=== PATIENT | female | born 1945 | race American Indian/Alaskan Native ===

== ENCOUNTER 2017-05-18 10:18 | Emergency (ER) | payer MEDICARE ==
[2017-05-18 10:42] VITALS: BP 165/72
[2017-05-18 11:36] LABS: Calcium 8.8 mg/dL (8.4-10.2); Chloride 94.8 mmol/L (98-107); Potassium 3.4 mmol/L (3.6-5.0)
[2017-05-18 11:44] LABS: Basophils % (Auto) 0.7 % (0.0-1.8); Eosinophils % (Auto) 2.2 % (0.0-4.3); Hematocrit 35.7 % (30.3-42.9); Hemoglobin 11.5 gm/dl (10.1-14.3); Mean Corpuscular HGB Conc 32 % (30-34); Mean Corpuscular Hemoglobin 28 pg (28-32); Mean Corpuscular Volume 87 fl (79-97)
[2017-05-18 11:49] LABS: INR 1.23 (0.87-1.13)
[2017-05-18 11:50] LABS: Partial Thromboplastin Time 41.6 Sec. (24.2-36.6); Platelet Count 99 K/mm3 (140-440); Red Cell Distribution Width 22.9 % (13.2-15.2)
--- NOTE | 2017-05-18 13:47 | Emergency Department Report ---
ED General Adult HPI - General Chief complaint: Extremity Injury, Upper Stated complaint: UNCONTROLLABLE BLEEDING Time Seen by Provider: 05/18/17 10:48 Source: EMS Mode of arrival: Stretcher Limitations: No Limitations - History of Present Illness Initial comments: Patient was sent via EMS from dialysis after bleeding from her shunt. She states that she believes she needed dialysis this morning. She doesn't have any other complaints. The shunt was dressed by EMS. On arrival the patient had apparent hemostasis. -: Sudden Associated Symptoms: denies other symptoms - Related Data Home Medications Medication Instructions Recorded Confirmed Last Taken AtorvaSTATin [Lipitor] 40 mg PO QHS 10/15/15 10/15/15 Unknown B Cmplx 4/Vit D3/C/Folic/Zinc 1 each PO DAILY 10/15/15 10/15/15 Unknown [Vital-D Rx Tablet] Cinacalcet HCl [Sensipar] 60 mg PO DAILY 10/15/15 10/15/15 Unknown Doxazosin [Cardura] 2 mg PO BID 10/15/15 10/15/15 Unknown Furosemide [Lasix TAB] 80 mg PO BID 10/15/15 10/15/15 Unknown HYDROcodone/APAP 5-325 [[place] 1 each PO BID PRN 10/15/15 10/15/15 Unknown 5/325] Lanthanum Carbonate [Fosrenol] 4 tab PO 5XD 10/15/15 10/15/15 Unknown Metoclopramide HCl [Reglan TAB] 5 mg PO 5XD 10/15/15 10/15/15 Unknown NIFEdipine XL [Procardia Xl] 60 mg PO Q12HR 10/15/15 10/15/15 Unknown Pantoprazole [Protonix] 40 mg PO QDAY 10/15/15 10/15/15 Unknown Sevelamer Carbonate [Renvela] 4 tab PO TIDWM 10/15/15 10/15/15 Unknown cloNIDine [Catapres] 0.1 mg PO BID 10/15/15 10/15/15 Unknown hydrALAZINE [Apresoline TAB] 50 mg PO BID 10/15/15 10/15/15 Unknown Allergies Allergy/AdvReac Type Severity Reaction Status Date / Time No Known Allergies Allergy Unverified 01/19/14 10:04 ED Review of Systems ROS: Stated complaint: UNCONTROLLABLE BLEEDING Other details as noted in HPI Comment: Unobtainable due to pts medical conditions ED Past Medical Hx - Past Medical History Previous Medical History?: Yes Hx Hypertension: Yes Hx CVA: Yes Hx Heart Attack/AMI: Yes Hx Congestive Heart Failure: Yes Hx Diabetes: Yes Hx Renal Disease: Yes (dialysis one kidney removed) - Surgical History Past Surgical History?: Yes Hx Cholecystectomy: Yes Additional Surgical History: L. kidney removed - Social History Smoking Status: Never Smoker - Medications Home Medications: Home Medications Medication Instructions Recorded Confirmed Last Taken Type AtorvaSTATin [Lipitor] 40 mg PO QHS 10/15/15 10/15/15 Unknown History B Cmplx 4/Vit D3/C/Folic/Zinc 1 each PO DAILY 10/15/15 10/15/15 Unknown History [Vital-D Rx Tablet] Cinacalcet HCl [Sensipar] 60 mg PO DAILY 10/15/15 10/15/15 Unknown History Doxazosin [Cardura] 2 mg PO BID 10/15/15 10/15/15 Unknown History Furosemide [Lasix TAB] 80 mg PO BID 10/15/15 10/15/15 Unknown History HYDROcodone/APAP 5-325 [[place] 1 each PO BID PRN 10/15/15 10/15/15 Unknown History 5/325] Lanthanum Carbonate [Fosrenol] 4 tab PO 5XD 10/15/15 10/15/15 Unknown History Metoclopramide HCl [Reglan TAB] 5 mg PO 5XD 10/15/15 10/15/15 Unknown History NIFEdipine XL [Procardia Xl] 60 mg PO Q12HR 10/15/15 10/15/15 Unknown History Pantoprazole [Protonix] 40 mg PO QDAY 10/15/15 10/15/15 Unknown History Sevelamer Carbonate [Renvela] 4 tab PO TIDWM 10/15/15 10/15/15 Unknown History cloNIDine [Catapres] 0.1 mg PO BID 10/15/15 10/15/15 Unknown History hydrALAZINE [Apresoline TAB] 50 mg PO BID 10/15/15 10/15/15 Unknown History ED Physical Exam - General Limitations: No Limitations General appearance: alert, in no apparent distress - Head Head exam: Present: atraumatic, normocephalic - Eye Eye exam: Present: normal appearance. Absent: scleral icterus - ENT ENT exam: Present: normal exam, mucous membranes moist - Neck Neck exam: Present: normal inspection - Respiratory Respiratory exam: Present: normal lung sounds bilaterally. Absent: respiratory distress - Cardiovascular Cardiovascular Exam: Present: regular rate, normal rhythm. Absent: systolic murmur, diastolic murmur, rubs, gallop - GI/Abdominal GI/Abdominal exam: Present: soft, normal bowel sounds. Absent: distended, tenderness, guarding, rebound - Extremities Exam Extremities exam: Present: other (dressing on the left arm has some blood on gauze but no apparent active bleeding.) - Back Exam Back exam: Present: normal inspection - Neurological Exam Neurological exam: Present: alert, oriented X3, other (no acute focal deficit) - Psychiatric Psychiatric exam: Present: normal affect, normal mood - Skin Skin exam: Present: warm, dry, intact, normal color. Absent: rash ED Course Vital Signs 05/18/17 10:35 Temperature 97.7 F Pulse Rate 60 Respiratory 24 Rate Blood Pressure 165/72 O2 Sat by Pulse 97 Oximetry - Reevaluation(s) Reevaluation #1: The dressing was left on the patient's arm for some time to allow for hemostasis. It was eventually removed. There was no bleeding whatsoever. It was dressed with Heliostat. The patient was further observed and finally discharged. 05/18/17 13:48 ED Medical Decision Making - Lab Data Result diagrams: 05/18/17 10:48 05/18/17 10:48 Laboratory Results - last 24 hr 05/18/17 05/18/17 05/18/17 10:47 10:48 10:48 WBC 3.0 L RBC 4.10 Hgb 11.5 Hct 35.7 MCV 87 MCH 28 MCHC 32 RDW 22.9 H Plt Count 99 L Lymph % (Auto) 17.4 [place] % (Auto) 9.9 H Eos % (Auto) 2.2 Baso % (Auto) 0.7 Lymph # 0.5 L Cooper # 0.3 Eos # 0.1 Baso # 0.0 Seg Neutrophils % 69.8 Seg Neutrophils # 2.1 PT INR APTT Sodium 136 L Potassium 3.4 L Chloride 94.8 L Carbon Dioxide 29 Anion Gap 16 BUN 10 Creatinine 3.2 H Estimated GFR 17 BUN/Creatinine Ratio 3 Glucose 87 POC Glucose 110 H Calcium 8.8 05/18/17 10:48 WBC RBC Hgb Hct MCV MCH MCHC RDW Plt Count Lymph % (Auto) [place] % (Auto) Eos % (Auto) Baso % (Auto) Lymph # Cooper # Eos # Baso # Seg Neutrophils % Seg Neutrophils # PT 16.1 H INR 1.23 H APTT 41.6 H Sodium Potassium Chloride Carbon Dioxide Anion Gap BUN Creatinine Estimated GFR BUN/Creatinine Ratio Glucose POC Glucose Calcium Critical care attestation.: If time is entered above; I have spent that time in minutes in the direct care of this critically ill patient, excluding procedure time. ED Disposition Clinical Impression: End stage renal disease on dialysis Bleeding from dialysis shunt Qualifiers: Encounter type: initial encounter Qualified Code(s): T82.838A - Hemorrhage due to vascular prosthetic devices, implants and grafts, initial encounter Disposition: TO HOME OR SELFCARE Is pt being admited?: No Does the pt Need Aspirin: No Condition: Stable Instructions: Chronic Kidney Disease (ED) Additional Instructions: Leave dressing on until tomorrow. Follow-up with your inspector materials and processes. Return if any recurrent bleeding. Referrals: PRIMARY CARE, [Primary Care Provider] - 3-5 Days usual, inspector materials and processes [Other] - 2-3 Days Time of Disposition: 13:50
== END 2017-05-18 14:00 | disposition home or self-care (01) ==
LOC: ED 10:18
DX: T82.838A Hemorrhage due to vascular prosthetic devices, implants and grafts, initial encounter (principal); I13.2 Hypertensive heart and chronic kidney disease with heart failure and with stage 5 chronic kidney disease, or end stage renal disease; E11.22 Type 2 diabetes mellitus with diabetic chronic kidney disease; I50.9 Heart failure, unspecified; N18.6 End stage renal disease; I25.2 Old myocardial infarction; Z99.2 Dependence on renal dialysis; Z86.73 Personal history of transient ischemic attack (TIA), and cerebral infarction without residual deficits
CPT/HCPCS: 36415; 80048; 82962; 85025; 85610; 85730; 86850; 86900; 86901; 99283

== ENCOUNTER 2017-12-21 13:48 | Emergency (ER) | payer MEDICARE ==
--- NOTE | 2017-12-21 14:06 | Cat Scan Report ---
CT HEAD WITHOUT CONTRAST: 12/21/17 13:48:00 CLINICAL: 98N-STROKE ALERT. TECHNIQUE: 2.5-mm noncontrast scans. COMPARISON:None FINDINGS: The ventricles and sulci are slightly large for age.Moderate bilateral deep white matter hypodensities, more prominent in the frontal lobes. The most prominent is in the left frontal lobe white matter. No mass or mass effect. No hemorrhage, edema or extra-axial collection. The sinuses are clear. Normal orbits and soft tissues. The calvarium and skull base are intact. IMPRESSION: Moderate bilateral chronic white matter microangiopathy and mild global cortical atrophy. No hemorrhage. A nonhemorrhagic infarct is a possibility given the degree of bilateral multifocal hypodensities. Verbal report was given to Dr. Boyer in the emergency department on 12/21/17 at 1400. 98N-STROKE ALERT
[2017-12-21 14:44] LABS: Bilirubin,Urine NEG (Negative); Blood,Urine NEG (Negative); Color,Urine Yellow (Yellow); Urobilinogen,Urine < 2.0 mg/dL (<2.0)
[2017-12-21 15:01] LABS: Basophils % (Auto) 1.1 % (0.0-1.8); Eosinophils # (Auto) 0.1 K/mm3 (0.0-0.4); Eosinophils % (Auto) 3.5 % (0.0-4.3); Lymphocytes # (Auto) 0.7 K/mm3 (1.2-5.4); Lymphocytes % (Auto) 17.3 % (13.4-35.0); Mean Corpuscular HGB Conc 33 % (30-34); Mean Corpuscular Hemoglobin 30 pg (28-32); Mean Corpuscular Volume 91 fl (79-97); Monocytes # (Auto) 0.4 K/mm3 (0.0-0.8); Monocytes % (Auto) 11.7 % (0.0-7.3); Platelet Count 109 K/mm3 (140-440)
[2017-12-21 15:14] LABS: Calcium 9.2 mg/dL (8.4-10.2)
[2017-12-21 15:15] LABS: INR 0.84 (0.87-1.13)
[2017-12-21 15:16] LABS: Partial Thromboplastin Time 27.5 Sec. (24.2-36.6)
[2017-12-21] MEDS ORDERED: APRESOLINE IV ONE ×2 (15:20→18:01)
[2017-12-21 15:30] LABS: Chol/HDL Ratio 2.38 %
[2017-12-21] MEDS ORDERED: APRESOLINE ONE ×2 (15:31→18:22)
--- NOTE | 2017-12-21 15:35 | Emergency Department Report ---
HPI - General Chief Complaint: Neuro Symptoms/Deficit Time Seen by Provider: 12/21/17 14:01 - HPI HPI: The patient is a 72-year-old female with a history of stage renal disease on dialysis, congestive heart failure, diabetes, hypertension, baseline dementia, who presents for evaluation of mental status change. Per the patient's , approximately 30 minutes prior to arrival, the patient e was watching TV when she experienced the change in mental status. She crouched over and exhibited rolling of her eyes backwards and constant severe drowiness. EMS reported that the patient exhibited decreased strength and speech, but family at bedside deny that he states that her current speech and physical activity on initial exam are her normal baseline. The patient denies, injury to the head, headache, chest pain, dyspnea, abdominal pain, neck pain, back pain, paresthesias, decreased motor strength, or other neuro deficit. She states that she did receive dialysis today. ED Past Medical Hx - Past Medical History Hx Hypertension: Yes Hx CVA: Yes Hx Heart Attack/AMI: Yes Hx Congestive Heart Failure: Yes Hx Diabetes: Yes Hx Renal Disease: Yes (dialysis - one kidney removed) - Surgical History Hx Cholecystectomy: Yes Additional Surgical History: L. kidney removed - Social History Smoking Status: Unknown if ever smoked - Medications Home Medications: Home Medications Medication Instructions Recorded Confirmed Last Taken Type AtorvaSTATin [Lipitor] 40 mg PO QHS 10/15/15 10/15/15 Unknown History B Cmplx 4/Vit D3/C/Folic/Zinc 1 each PO DAILY 10/15/15 10/15/15 Unknown History [Vital-D Rx Tablet] Cinacalcet HCl [Sensipar] 60 mg PO DAILY 10/15/15 10/15/15 Unknown History Doxazosin [Cardura] 2 mg PO BID 10/15/15 10/15/15 Unknown History Furosemide [Lasix TAB] 80 mg PO BID 10/15/15 10/15/15 Unknown History HYDROcodone/APAP 5-325 [[place] 1 each PO BID PRN 10/15/15 10/15/15 Unknown History 5/325] Lanthanum Carbonate [Fosrenol] 4 tab PO 5XD 10/15/15 10/15/15 Unknown History Metoclopramide HCl [Reglan TAB] 5 mg PO 5XD 10/15/15 10/15/15 Unknown History NIFEdipine XL [Procardia Xl] 60 mg PO Q12HR 10/15/15 10/15/15 Unknown History Pantoprazole [Protonix] 40 mg PO QDAY 10/15/15 10/15/15 Unknown History Sevelamer Carbonate [Renvela] 4 tab PO TIDWM 10/15/15 10/15/15 Unknown History cloNIDine [Catapres] 0.1 mg PO BID 10/15/15 10/15/15 Unknown History hydrALAZINE [Apresoline TAB] 50 mg PO BID 10/15/15 10/15/15 Unknown History ED Review of Systems ROS: Stated complaint: POSS CVA Other details as noted in HPI Constitutional: denies: fever ENT: denies: throat or neck pain Respiratory: denies: cough, shortness of breath Cardiovascular: denies: chest pain Endocrine: denies unexplained weight loss or gain Gastrointestinal: denies: abdominal pain, nausea Genitourinary: denies: dysuria Musculoskeletal: denies: leg swelling Skin: denies: rash Neurological: denies: headache Hematological/Lymphatic: denies: easy bleeding or easy bruising Psych: denies sadness or hopelessness Physical Exam - Physical Exam Vital Signs: Vital Signs 12/21/17 12/21/17 12/21/17 14:30 14:39 14:45 Temperature 97.9 F Pulse Rate 76 73 76 Respiratory 9 L 11 L 22 Rate Blood Pressure 189/79 Blood Pressure 187/76 [Right] O2 Sat by Pulse 96 97 96 Oximetry Physical Exam: General: well-nourished, well-developed, no acute distress, pleasant, engaging, smiling Head: Normocephalic, atraumatic Eyes: normal sclera ENT: Mucous membranes are pink and moist Neck: trachea midline, neck supple, No neck stiffness, no cervical adenopathy Respiratory: Breath sounds equal bilaterally, no wheezing, rales, or rhonchi Cardio: S1 and S2 present, no murmurs, rubs, gallops, capillary refill is brisk Abdomen: Normoactive bowel sounds, soft abdomen, no tenderness Chest WALL/Back: No tenderness to palpation of the chest wall, no CVA tenderness with percussion Musc: No tenderness to the shoulders, elbows, hips, knees, ankles, or midline back Skin: No rash Neuro: alert oriented x4, normal cognition, speech normal, PERRL, EOM intact, no facial drooping, no uvula or tongue deviation on protrusion, no deficit with rotation of neck or shoulder shrug, no motor deficit changes from baseline in the upper or lower extremities per daughters at bedside, no obvious gross sensation deficit , 2+ symmetric reflexes on DTR testing, no coordination deficit with akqsso-[id number] or xnzm-[id number] testing, Babinski downgoing Psych: Normal affect ED Course Vital Signs 12/21/17 12/21/17 12/21/17 14:30 14:39 14:45 Temperature 97.9 F Pulse Rate 76 73 76 Respiratory 9 L 11 L 22 Rate Blood Pressure 189/79 Blood Pressure 187/76 [Right] O2 Sat by Pulse 96 97 96 Oximetry ED Medical Decision Making - Lab Data Result diagrams: 12/21/17 14:45 12/21/17 14:45 - Medical Decision Making The patient was seen and examined by myself. The patient is placed on a classroom monitor and continuous pulse ox. On initial evaluation, the patient was found to be in no distress with no obvious neuro deficits on exam consistent with acute stroke. As EMS reported neuro deficits per family member, Code stroke was called and CT of the head was obtained. Evaluation orders were placed. CT scan the head is negative for acute intracranial hemorrhage, but does demonstrate microvascular ischemic change. The on-call neurologist evaluated the patient agrees that the patient is not a tPA candidate as reported neuro deficits are resolved. Labs results revealed elevated lactic acid 3, and otherwise were grossly unrevealing. The patient given a aspirin tablet for treatment of potential TIA. Dr. Guidry, the physician on-call for the hospitalists service was contacted. He agreed to admit the patient for further treatment and close monitoring. The ED admit order was placed. The patient was admitted in guarded condition. Critical care attestation.: If time is entered above; I have spent that time in minutes in the direct care of this critically ill patient, excluding procedure time. ED Disposition Clinical Impression: Seizure Altered mental status Qualifiers: Altered mental status type: transient alteration of awareness Qualified Code(s) : R40.4 - Transient alteration of awareness TIA (transient ischemic attack) Qualifiers: Transient cerebral ischemia type: other Qualified Code(s): G45.8 - Other transient cerebral ischemic attacks and related syndromes Disposition: OP ADMIT IP TO THIS HOSP Is pt being admited?: Yes Does the pt Need Aspirin: Yes Condition: Fair Referrals: PRIMARY CARE, [Primary Care Provider] - 3-5 Days Time of Disposition: 15:36 - Assessment Assessment Interval: Baseline - Level of Consciousness 1a. Level of Consciousness: alert - LOC Questions 1b. LOC Questions: answers correctly - LOC Command 1c. LOC Commands: performs tasks correctly - Best Gaze 2. Best Gaze: normal - Visual 3. Visual: no visual loss - Facial Palsy 4. Facial Palsy: normal symmetrical movement - Motor Arm 5b. Motor Arm Right: no drift 5a. Motor Arm Left: no drift - Motor Leg 6a. Motor Leg Left: drift 6b. Motor Leg Right: no drift - Limb Ataxia 7. Limb Ataxia: absent - Sensory 8. Sensory: normal - Best Language 9. Best Language: no aphasia - Dysarthria 10. Dysarthria: normal - Extinction and Inattention 11. Extinction/Inattention: no abnormality - Scoring Total Score: 1 Stroke Severity: Minor Stroke
--- NOTE | 2017-12-21 15:50 | XRay Report ---
FINAL REPORT PROCEDURE: XR CHEST 1V AP TECHNIQUE: Chest radiograph anteroposterior view. CPT 16704 HISTORY: cough COMPARISON: Prior chest x-ray 06/25/2015 FINDINGS: Since the prior study a dual-chamber pacemaker has been placed. A metallic stent has also been placed which overlies central aspect of the heart. Cardiomegaly is again noted. Pulmonary vasculature is distended. There is mild peribronchial cuffing and mild prominence interstitial markings in the periphery, I suspect there is mild pulmonary edema/CHF. No effusions are identified. No focal infiltrates or masses are seen. Metallic stent is seen overlying the left axilla extending into the left upper arm. Bones are diffusely demineralized. IMPRESSION: Cardiomegaly with signs of mild CHF. No effusions are identified. New pacemaker and metallic stent in place as described. Osteoporosis. Stent visualized left axillary region extending into the left upper arm was seen on the prior study as well.
[2017-12-21] MEDS ORDERED: NACL 0.9% 500 ML 500 ML ONE (16:12)
[2017-12-21] MEDS ORDERED: NACL 0.9% 500 ML 500 ML IV ONE (16:13)
[2017-12-21] MEDS ORDERED: BABY ASPIRIN PO ONE (18:03)
--- NOTE | 2017-12-21 18:03 | History and Physical Report ---
History of Present Illness Chief complaint: She is weak, and confused History of present illness: 72 YO Female currently on Home Hospice with ESRD on HD(T,R,Sa), CHF, HTN, GA, DM , Dementia presents to ED for evaluation. Pt confused and unable to provide history. Pt history provided by family who is at bedside during exam and interview. As per family, the patient experienced sudden onset of confusion, slurred speech, and right sided weakness. EMS notified, and upon arrival the patient was found to be weak and confused. A code stroke was called and the patient was transported to [facility] for further care and evaluation. Pt seen and evaluated in ED and found to have symptoms consistent with CVA as well as evidence of CHF Decompensation. Pt family was informed of risks and benefits of TPA, antiplatelet therapy. Pt found to have poor prognosis. Pt was admitted to telemetry and initiated on CVA as well as CHF protocols. Pt family subsequently decided to refrain from any active treatment and elects be discharged from hospital, and to continue home hospice care. Pt was subsequently discharged home under the care of the medical records manager. Past History Past Medical History: acute GA, diabetes, heart failure, hypertension, stroke Past Surgical History: Other (Nephrectomy) Social history: , lives with family. denies: smoking, alcohol abuse, prescription drug abuse Family history: diabetes, hypertension Medications and Allergies Allergies Allergy/AdvReac Type Severity Reaction Status Date / Time No Known Allergies Allergy Unverified 01/19/14 10:04 Home Medications Medication Instructions Recorded Confirmed Last Taken Type AtorvaSTATin [Lipitor] 40 mg PO QHS 10/15/15 10/15/15 Unknown History B Cmplx 4/Vit D3/C/Folic/Zinc 1 each PO DAILY 10/15/15 10/15/15 Unknown History [Vital-D Rx Tablet] Cinacalcet HCl [Sensipar] 60 mg PO DAILY 10/15/15 10/15/15 Unknown History Doxazosin [Cardura] 2 mg PO BID 10/15/15 10/15/15 Unknown History Furosemide [Lasix TAB] 80 mg PO BID 10/15/15 10/15/15 Unknown History HYDROcodone/APAP 5-325 [[place] 1 each PO BID PRN 10/15/15 10/15/15 Unknown History 5/325] Lanthanum Carbonate [Fosrenol] 4 tab PO 5XD 10/15/15 10/15/15 Unknown History Metoclopramide HCl [Reglan TAB] 5 mg PO 5XD 10/15/15 10/15/15 Unknown History NIFEdipine XL [Procardia Xl] 60 mg PO Q12HR 10/15/15 10/15/15 Unknown History Pantoprazole [Protonix] 40 mg PO QDAY 10/15/15 10/15/15 Unknown History Sevelamer Carbonate [Renvela] 4 tab PO TIDWM 10/15/15 10/15/15 Unknown History cloNIDine [Catapres] 0.1 mg PO BID 10/15/15 10/15/15 Unknown History hydrALAZINE [Apresoline TAB] 50 mg PO BID 10/15/15 10/15/15 Unknown History LORazepam [Ativan] 1 mg PO QHS #30 tab 12/21/17 Unknown Rx Review of Systems ROS unobtainable: due to mental status Exam - Constitutional Vitals: Temp Pulse Resp BP Pulse Ox 97.9 F 76 15 184/71 94 12/21/17 14:39 12/21/17 16:30 12/21/17 16:30 12/21/17 16:30 12/21/17 16:30 General appearance: Present: mild distress - EENT Eyes: Present: PERRL ENT: hearing intact, clear oral mucosa - Neck Neck: Present: supple, normal ROM - Respiratory Respiratory effort: normal Respiratory: bilateral: CTA - Cardiovascular Heart Sounds: Present: S1 & S2. Absent: rub, click - Extremities Extremities: pulses symmetrical, No edema Peripheral Pulses: within normal limits - Abdominal General gastrointestinal: Present: soft, non-tender, non-distended, normal bowel sounds Female genitourinary: Present: normal - Integumentary Integumentary: Present: clear, warm, dry - Musculoskeletal Musculoskeletal: generalized weakness - Psychiatric Psychiatric: no intact judgment & insight, no memory intact - Neurologic Neurologic: no focal deficits, moves all extremities, no gait normal Results - Labs CBC & Chem 7: 12/21/17 14:45 12/21/17 14:45 Labs: Abnormal lab results 12/21/17 12/21/17 12/21/17 Range/Units 14:30 14:30 14:34 WBC (4.5-11.0) K/mm3 RBC (3.65-5.03) M/mm3 Hgb (10.1-14.3) gm/dl Hct (30.3-42.9) % RDW (13.2-15.2) % Plt Count (140-440) K/mm3 [place] % (Auto) (0.0-7.3) % Lymph # (1.2-5.4) K/mm3 PT 11.9 L (12.2-14.9) Sec. INR 0.84 L (0.87-1.13) Chloride (98-107) mmol/L Creatinine (0.7-1.2) mg/dL Glucose (65-100) mg/dL POC Glucose (70-105) Lactic Acid 3.10 H* (0.7-2.0) mmol/L Troponin T (0.00-0.029) ng/mL NT-Pro-B Natriuret Pep (0-900) pg/mL HDL Cholesterol (40-59) mg/dL Urine pH 8.0 H (5.0-7.0) 12/21/17 12/21/17 12/21/17 Range/Units 14:45 14:45 14:45 WBC 3.8 L (4.5-11.0) K/mm3 RBC 3.30 L (3.65-5.03) M/mm3 Hgb 10.0 L (10.1-14.3) gm/dl Hct 30.0 L (30.3-42.9) % RDW 20.0 H (13.2-15.2) % Plt Count 109 L (140-440) K/mm3 [place] % (Auto) 11.7 H (0.0-7.3) % Lymph # 0.7 L (1.2-5.4) K/mm3 PT (12.2-14.9) Sec. INR (0.87-1.13) Chloride 93.7 L (98-107) mmol/L Creatinine 3.6 H (0.7-1.2) mg/dL Glucose 123 H (65-100) mg/dL POC Glucose (70-105) Lactic Acid (0.7-2.0) mmol/L Troponin T 0.064 H (0.00-0.029) ng/mL NT-Pro-B Natriuret Pep > 32046 H (0-900) pg/mL HDL Cholesterol 81 H (40-59) mg/dL Urine pH (5.0-7.0) 12/21/17 12/21/17 Range/Units 15:28 15:55 WBC (4.5-11.0) K/mm3 RBC (3.65-5.03) M/mm3 Hgb (10.1-14.3) gm/dl Hct (30.3-42.9) % RDW (13.2-15.2) % Plt Count (140-440) K/mm3 [place] % (Auto) (0.0-7.3) % Lymph # (1.2-5.4) K/mm3 PT (12.2-14.9) Sec. INR (0.87-1.13) Chloride (98-107) mmol/L Creatinine (0.7-1.2) mg/dL Glucose (65-100) mg/dL POC Glucose 146 H (70-105) Lactic Acid 3.10 H* (0.7-2.0) mmol/L Troponin T (0.00-0.029) ng/mL NT-Pro-B Natriuret Pep (0-900) pg/mL HDL Cholesterol (40-59) mg/dL Urine pH (5.0-7.0) Assessment and Plan - Patient Problems (1) CVA (cerebral vascular accident) Current Visit: Yes Status: Acute Qualifiers: Precerebral and cerebral artery: middle cerebral artery Laterality of affected vessel: left Plan to address problem: Stroke protocol, CT Head, MRI Brain, MRA Brain, Echo, Carotid Doppler, Anti platelet therapy, PT/OT/Speech Therpay. Pt family elects to be discharged home with hospice care. Permissive hypertension overnight. (2) ESRD (end stage renal disease) on dialysis Current Visit: Yes Status: Acute Plan to address problem: Dialysis as per renal team, Chest x ray, strict I/O, monitor uop q shift. (3) CHF (congestive heart failure) Current Visit: No Status: Acute Qualifiers: Heart failure type: systolic Heart failure chronicity: acute on chronic Qualified Code(s): I50.23 - Acute on chronic systolic (congestive) heart failure Plan to address problem: Strict I/O, Daily weight, diuresis, dialysis as per renal team, Echo, monitor uop q shift, afterload reduction, BP monitoring. (4) DVT prophylaxis Current Visit: Yes Status: Acute
[2017-12-21] MEDS ORDERED: SODIUM CHLORIDE FLUSH SYRINGE 10 ML IV PRN (18:05)
[2017-12-21] MEDS ORDERED: ZOFRAN IV PRN (18:05)
[2017-12-21] MEDS ORDERED: REGLAN PO PRN (18:05)
[2017-12-21] MEDS ORDERED: PHENERGAN PR PRN (18:05)
[2017-12-21] MEDS ORDERED: MILK OF MAGNESIA PO PRN (18:05)
[2017-12-21] MEDS ORDERED: DULCOLAX PR PRN (18:05)
[2017-12-21] MEDS ORDERED: TYLENOL PO PRN (18:05)
[2017-12-21 18:42] LABS: Free T4 (Free Thyroxine) 1.21 ng/dL (0.76-1.46)
[2017-12-21] MEDS ORDERED: LASIX IV SCH (19:00)
[2017-12-21] MEDS ORDERED: PROTONIX PO SCH (19:00)
[2017-12-21 19:51] VITALS: BP 183/68
[2017-12-21] MEDS ORDERED: FOSRENOL PO SCH (22:00)
[2017-12-21] MEDS ORDERED: NON-FORMULARY (Metoclopramide Hcl [Reglan Tab] 5 MG) PO SCH (22:00)
[2017-12-22] MEDS ORDERED: RENVELA PO SCH (08:00)
[2017-12-22] MEDS ORDERED: SENSIPAR PO SCH (10:00)
[2017-12-22] MEDS ORDERED: VIT D3 PO SCH (10:00)
[2017-12-22] MEDS ORDERED: ZINC PO SCH (10:00)
[2017-12-22] MEDS ORDERED: ASPIRIN PO SCH (10:00)
[2017-12-22] MEDS ORDERED: [UNRECOGNIZED DRUG - OTHER] PO SCH (10:00)
[2017-12-22] MEDS ORDERED: FOLIC PO SCH (10:00)
[2017-12-22] MEDS ORDERED: Renal Caps PO SCH (10:00)
== END 2017-12-21 20:26 | disposition home or self-care (01) ==
LOC: ED 13:48
DX: G45.8 Other transient cerebral ischemic attacks and related syndromes (principal); I13.0 Hypertensive heart and chronic kidney disease with heart failure and stage 1 through stage 4 chronic kidney disease, or unspecified chronic kidney disease; E11.22 Type 2 diabetes mellitus with diabetic chronic kidney disease; N18.9 Chronic kidney disease, unspecified; Z99.2 Dependence on renal dialysis; Z90.49 Acquired absence of other specified parts of digestive tract
CPT/HCPCS: 36415; 70450; 71045; 80048; 80061; 81001; 82140; 82550; 82962; 83690; 83880; 84439; 84443; 84484; 85025; 85610; 85670; 85730; 87400; 93005; 93010; 96374; 96376; 99285; J0360; J7040; A9270-GY